=== PATIENT | female | born 1965 | race Caucasian/White ===

== ENCOUNTER 2021-01-23 06:52 | Emergency (ER) | payer OTHER ==
[2021-01-23 07:33] LABS: HEMOGLOBIN 14.5 gm/dl (12.3-15.3); RED BLOOD COUNT 4.72 M/UL (4.00-5.10); WHITE BLOOD COUNT 9.5 K/UL (4.5-11.0)
[2021-01-23 08:10] LABS: BUN/CREATININE RATIO 23 (0-10)
== END 2021-01-23 10:37 | disposition home or self-care (01) ==
LOC: ER1 06:52
PROVIDERS: Emergency Medicine
DX: R51.9 Headache, unspecified (principal); I10 Essential (primary) hypertension; K21.9 Gastro-esophageal reflux disease without esophagitis; F17.200 Nicotine dependence, unspecified, uncomplicated; Z20.822 Contact with and (suspected) exposure to COVID-19
CPT/HCPCS: 70450; 71045; 80053; 81001; 82550; 82553; 84484; 85025; 93005; 96374; 96375; 99284; J0780; J1885; J2060; U0002